=== PATIENT | male | born 1970 | race Two or more races ===

== ENCOUNTER 2018-03-19 17:45 | Observation (INO) | payer BC ==
[~2018-03-19] VITALS: Ht 195.6 cm; Wt 113.5 kg
[2018-03-19] MEDS ORDERED: MORPHINE SULFATE INJ 4 MG/ML INJ IV STA (18:07)
[2018-03-19] MEDS ORDERED: ONDANSETRON HCL INJ 2 MG/ML VIAL IV STA (18:07)
[2018-03-19] MEDS ORDERED: SODIUM CHLORIDE 0.9% 1000ML 1,000 ML IV STA (18:07)
[2018-03-19] MEDS ORDERED: DIATRIZOATE MEGL/DIATRIZOA SOD 30 ML BTL PO ONE (18:11)
[2018-03-19 18:48] LABS: BASOPHILS # (AUTO) 0.1 (0.0-0.1); BASOPHILS % 0.6 % (0.0-1.0); EOSINOPHILS # (AUTO) 0.7 (0.0-0.4); HEMOGLOBIN 15.5 g/dL (14.0-18.0); LYMPHOCYTES # (AUTO) 3.8 (1.0-3.2); LYMPHOCYTES % 22.2 % (18.0-39.1); MEAN CORPUSCULAR HEMOGLOBIN 30.8 pg (28-32); MEAN CORPUSCULAR HGB CONC 34.4 g/dL (31-35); MEAN CORPUSCULAR VOLUME 89.5 fL (81-99); MONOCYTES % 11.4 % (4.4-11.3); NEUTROPHILS # (AUTO) 10.6 (2.1-6.9); NEUTROPHILS % 61.2 % (38.7-80.0); PLATELET COUNT 305 x10e3/uL (140-360); RED BLOOD COUNT 5.03 x10e6/uL (4.3-5.7); RED CELL DISTRIBUTION WIDTH 15.9 % (11.7-14.4)
[2018-03-19 18:52] LABS: CLARITY,URINE SL CLOUDY (CLEAR); COLOR,URINE YELLOW (YELLOW); KETONES,URINE 1+ (NEGATIVE); LEUKOCYTE ESTERASE ,URINE NEGATIVE (NEGATIVE); NITRITE,URINE NEGATIVE (NEGATIVE); PROTEIN,URINE DIPSTICK NEGATIVE (NEGATIVE); URINE UROBILINOGEN 0.2 mg/dL (0.2 - 1)
[2018-03-19 18:53] LABS: BILIRUBIN,URINE NEGATIVE (NEGATIVE)
[2018-03-19] MEDS ORDERED: PHENTERMINE H37.5 MG PO (19:01)
[2018-03-19 19:03] LABS: ALANINE AMINOTRANSFERASE 21 IU/L (0-55); ALBUMIN 3.9 g/dL (3.5-5.0); ALBUMIN/GLOBULIN RATIO 1.1 (0.8-2.0); ALKALINE PHOSPHATASE 56 IU/L (40-150); BLOOD UREA NITROGEN 13 mg/dL (7-26); BUN/CREATININE RATIO 13 (6-25); CALCIUM 9.7 mg/dL (8.4-10.2); CARBON DIOXIDE 25 mmol/L (22-29); CHLORIDE 104 mmol/L (98-107); CREATININE, SERUM 1.01 mg/dL (0.72-1.25); EST GLOMERULAR FILTRATION RATE > 60 ML/MIN (60-); GLUCOSE 95 mg/dL (74-118); SODIUM 139 mmol/L (136-145)
[2018-03-19 19:03] LABS: EPITHELIAL CELLS,URINE RARE /LPF; MUCUS,URINE MODERATE (RARE)
[2018-03-19] MEDS ORDERED: IOPAMIDOL 370 MG/ML 200 ML INFUS..BTL INJ ONE (20:01)
[2018-03-19] MEDS ORDERED: SODIUM CHLORIDE 0.9% 50ML 50 ML ONE (20:01)
--- NOTE | 2018-03-19 20:02 | Diagnostic Imaging Report ---
EXAM: CT Abdomen and Pelvis WITH contrast INDICATION: Abdominal pain. Back pain. Prior splenectomy and hernia repair COMPARISON: None. TECHNIQUE: Abdomen and pelvis were scanned utilizing a multidetector helical scanner from the lung base to the pubic symphysis after administration of IV contrast. Coronal and sagittal reformations were obtained. Routine protocol was performed. Scan was performed when during portal venous phase. IV CONTRAST: 100 mL of Isovue-370 ORAL CONTRAST: Gastrografin RADIATION DOSE: Total DLP: 842.88 mGy*cm Estimated effective dose: (DLP x 0.015 x size factor) mSv COMPLICATIONS: None FINDINGS: LINES and TUBES: None. LOWER THORAX: Unremarkable HEPATOBILIARY: No focal hepatic lesions. No biliary ductal dilation. GALLBLADDER: No radio-opaque stones or sludge. No wall thickening. SPLEEN: Surgically absent. Likely small splenule PANCREAS: No focal masses or ductal dilatation. 4.3 cm cyst adjacent to the body of the pancreas could be postsurgical ADRENALS: No adrenal nodules KIDNEYS/URETERS: Kidneys enhance symmetrically. No hydronephrosis. No cystic or solid mass lesions. No stones. GI TRACT: No abnormal distention, wall thickening, or evidence of bowel obstruction. Appendix is normal. PELVIC ORGANS/BLADDER: Unremarkable. LYMPH NODES: No lymphadenopathy. VESSELS: Unremarkable. PERITONEUM / RETROPERITONEUM: No free air or fluid. BONES: Unremarkable. SOFT TISSUES: Small fat-containing inguinal hernias. IMPRESSION: 1. Small fat-containing inguinal hernias. 2. 4.3 cm cyst adjacent to the body of the pancreas could be postsurgical. Signed by: Dr. Sang Katz M.D. on 03/19/2018 7:59 PM
[2018-03-19] MEDS ORDERED: HYDROMORPHONE 1MG/1ML INJ IV ONE (20:30)
[2018-03-19] MEDS: PIPER-TAZ 3.375 GM 50 ML IV SCH (20:32)
[2018-03-19] MEDS ORDERED: ONDANSETRON HCL INJ 2 MG/ML VIAL IV PRN (20:45)
[2018-03-19 20:52] LABS: EOSINOPHILS % (MANUAL) 3 % (0-7); LYMPHOCYTES % (MANUAL) 14 % (19-48); MONOCYTES % (MANUAL) 9 % (3.4-9.0); NEUTROPHILS % (MANUAL) 70 % (40-74); RBC MORPHOLOGY COMMENT NORMAL
[2018-03-19 20:53] LABS: PLATELET ESTIMATE ADEQUATE; PLATELET MORPHOLOGY COMMENT NORMAL
[2018-03-19 22:10] VITALS: BP 120/73
[2018-03-20] VITALS (7 sets, daily range): BP systolic 102–145; BP diastolic 62–72
[2018-03-20] MEDS: PIPER-TAZ 3.375 GM 50 ML IV SCH ×4 (03:13→20:14)
[2018-03-20] MEDS: HYDROMORPHONE 1MG/1ML INJ IV PRN ×4 (08:20→22:31)
--- NOTE | 2018-03-20 18:49 | Diagnostic Imaging Report ---
Exam: Thoracic and lumbar spine MRIs without IV contrast History: Mid and low back pain. Comparison studies: None Technique: Thoracic spine: Sagittal T1, T2, STIR, axial T1 and T2 Lumbar spine: Sagittal T1, T2, STIR, axial T2 and spin density oblique Findings: Number of lumbar vertebral bodies:5. Alignment: Normal thoracic kyphosis. Normal lumbar lordosis. No scoliosis. Lower thoracic cord: Normal in signal and morphology. The tip of the conus is at T12-L1. Soft tissues: No T2 hyperintense inflammatory changes. Paraspinal muscles: Well preserved. Vertebrae: Normal in height and signal intensity. No compression fractures, infection or neoplasm. Degenerative changes: Incompletely included cervical spine: Mild multilevel disc degeneration. Fatty replaced marrow endplate changes at C6-C7. No significant canal stenosis. Thoracic spine: Mild multilevel disc degeneration. Small disc bulges at T2-T3, T9-T10, T10-T11 and T11-T12. Patent canal and foramina. Lumbar spine: L1-L2: No abnormalities. L2-L3: Symmetric disc bulge does not result in significant canal stenosis. Patent foramina. L3-L4: Loss of T2 disc signal. Asymmetric left disc bulge with annular fissure and mild facet arthrosis with very mild canal stenosis. No significant foraminal stenosis. L4-L5: Mildly degenerated disc with mild loss of disc height and loss of T2 disc signal. Disc bulge with small central disc protrusion with annular fissure with mild canal stenosis and mild narrowing of the subarticular recesses without significant foraminal stenosis. L5-S1: Mildly degenerated disc with loss of disc height. Disc osteophyte complex and facet arthrosis (right greater than left) with mild canal stenosis and mild right foraminal stenosis. Disc osteophyte complex on the right abuts the right foraminal/extra foraminal nerve root. There is narrowing of the bilateral subarticular recess disease with disc osteophyte complex which abuts the bilateral S1 nerve roots and may exert mild mass effect on the right S1 nerve root. IMPRESSION: Thoracic spine: 1. No acute abnormalities. 2. Mild multilevel thoracic disc degeneration. 3. No canal stenosis, foraminal stenosis or other abnormalities. Lumbar spine: 1. No acute abnormalities. 2. Mildly degenerated disks with mild canal stenosis from L3 to S1. 3. Small annular fissure at L3-L4 and small disc protrusion with annular fissure at L4-L5. 4. Disc osteophyte complex and facet arthrosis at L5-S1 with mild right foraminal stenosis and potential mass effect on the right S1 nerve root, significance of which could be correlated for right S1 radiculopathy symptoms. Signed by: Dr. Tomas Lawrence M.D. on 03/20/2018 6:45 PM
[2018-03-20] MEDS ORDERED: SODIUM CHLORIDE 0.9% 250ML 250 ML ONE (20:33)
[2018-03-21] VITALS: BP 113/70
[2018-03-21 00:21] VITALS: BP 113/72
[2018-03-21] MEDS: PIPER-TAZ 3.375 GM 50 ML IV SCH (03:54)
[2018-03-21] MEDS: HYDROMORPHONE 1MG/1ML INJ IV PRN (04:15)
[2018-03-21 05:14] VITALS: BP 106/70
[2018-03-21 07:30] VITALS: BP 123/76
== END 2018-03-21 08:59 | disposition left against medical advice (07) ==
LOC: ER 17:45 → ERHOLD 21:06 → IMCU 22:11
PROVIDERS: ADMIT Surgery; ATTEND Surgery
DX: K40.90 Unilateral inguinal hernia, without obstruction or gangrene, not specified as recurrent (principal); R10.32 Left lower quadrant pain
CPT/HCPCS: 36415; 72146; 72148; 74177; 80053; 81001; 85025; 87086; 99284; G0378 ×3; J1170 ×3; J2270; J2405; J2543 ×3; J7030; J7050; Q9967